=== PATIENT | male | born 1985 | race African-American/Black ===

== ENCOUNTER 2019-07-17 08:58 | Emergency (ER) | payer SELFPAY ==
[2019-07-17] MEDS ORDERED: FAMOTIDINE 20 MG/2 ML VIAL IV ONE (09:40)
[2019-07-17] MEDS ORDERED: ONDANSETRON 4 MG/2 ML VIAL ONE (09:42)
[2019-07-17 10:01] LABS: Absolute Lymphocytes (CBC) 3.3 K/uL (0.7-4.9); Basophils % 0.2 % (0-1.3); Lymphocytes % 37.9 % (15.3-44.8); MPV 6.7 fL (7.6-11.3); RBC Red Blood Cell Count 3.09 M/uL (4.33-5.43)
[2019-07-17 10:13] LABS: ALT/SGPT 18 U/L (12-78); AST/SGOT 15 U/L (15-37); Albumin 3.5 g/dL (3.4-5.0); Alkaline Phosphatase 48 U/L (45-117); BUN Blood Urea Nitrogen 22 mg/dL (7-18); Bicarbonate 28 mmol/L (21-32); Bilirubin Direct < 0.1 mg/dL (0-0.2); Bilirubin Total 0.2 mg/dL (0.2-1.0); Glucose Level 97 mg/dL (74-106); Lipase 93 U/L (73-393); Potassium 3.9 mmol/L (3.5-5.1); Protein, Total 6.4 g/dL (6.4-8.2); Sodium Level 142 mmol/L (136-145)
--- NOTE | 2019-07-17 10:37 | RAD REPORT ---
EXAM DESCRIPTION: US - Abdomen Exam Limited - 07/17/2019 10:23 am CLINICAL HISTORY: Abdominal pain. COMPARISON: None. FINDINGS: The gallbladder wall is not thickened. A gallstone is not seen. The biliary tree is upper limits normal caliber IMPRESSION: Unremarkable gallbladder ultrasound.
--- NOTE | 2019-07-17 10:48 | ER ---
Nurse's Notes [facility] Name: Harpreet Andrews Age: 34 yrs Sex: Male : 1985 Arrival Date: 07/17/2019 Time: 09:01 Bed 2 Private MD: Diagnosis: Hematemesis Presentation: 07/17 09:16 Presenting complaint: Patient states: RUQ and back pain that began 2 weeks ago, is ss worse in the morning. Pt reports that yesterday he had two episodes of vomiting with blood in it. Today he feels better, but he is just worried and wants to be checked out. Transition of care: patient was not received from another setting of care. Onset of symptoms is unknown. Risk Assessment: Do you want to hurt yourself or someone else? Patient reports no desire to harm self or others. Initial Sepsis Screen: Does the patient meet any 2 criteria? No. Patient's initial sepsis screen is negative. Does the patient have a suspected source of infection? No. Patient's initial sepsis screen is negative. Care prior to arrival: None. 09:16 Acuity: RAMA 3 ss 09:16 Method Of Arrival: Ambulatory ss Triage Assessment: 09:20 General: Appears in no apparent distress. comfortable, Behavior is cooperative, bp appropriate for age, anxious. Pain: Complains of pain in right upper quadrant. EENT: No deficits noted. Neuro: No deficits noted. Cardiovascular: No deficits noted. Respiratory: No deficits noted. GI: Reports nausea, vomiting. : No signs and/or symptoms were reported regarding the genitourinary system. Derm: No deficits noted. Musculoskeletal: No deficits noted. Historical: - Allergies: 09:18 No Known Allergies; ss - Home Meds: 09:18 None [Active]; ss - PMHx: 09:18 None; ss - PSHx: 09:18 None; ss - Immunization history:: Adult Immunizations up to date. - Social history:: Smoking status: Patient uses tobacco products, black n milds. - Ebola Screening: : Patient denies exposure to infectious person Patient denies travel to an Ebola-affected area in the 21 days before illness onset. - Family history:: not pertinent. - Hospitalizations: : No recent hospitalization is reported. Screenin:46 Abuse screen: Denies threats or abuse. Denies injuries from another. Nutritional bp screening: No deficits noted. Tuberculosis screening: No symptoms or risk factors identified. Fall Risk None identified. Assessment: 09:20 General: SEE TRIAGE NOTE. bp 10:04 Reassessment: ALL CURRENT ORDERS COMPLETED, U/S PENDING. bp 10:56 Reassessment: PT D/C HOME AMBULATORY WITH FAMILY, DX WITH GI BLEED. bp Vital Signs: 09:18 BP 121 / 94; Pulse 87; Resp 16; Temp 98.0(O); Pulse Ox 100% on R/A; Weight 81.65 kg; ss Height 6 ft. 0 in. (182.88 cm); Pain 0/10; 10:05 BP 116 / 84; Pulse 76; Resp 16; Pulse Ox 100% ; bp 10:56 BP 107 / 79; Pulse 81; Resp 16; Temp 98; Pulse Ox 100% ; bp 09:18 Body Mass Index 24.41 (81.65 kg, 182.88 cm) ED Course: 09:01 Patient arrived in ED. as 09:17 Triage completed. ss 09:18 Arm band placed on left wrist. ss 09:19 Gabriel Ellington, KOSTA is Primary Nurse. bp 09:22 Jim Sandoval MD is Attending Physician. rn 09:40 Inserted saline lock: 20 gauge in right antecubital area, using aseptic technique. bp Blood collected. 09:46 Patient has correct armband on for positive identification. Bed in low position. Call bp light in reach. Side rails up X2. Adult w/ patient. 10:23 US Abdomen Limited In Process Unspecified. EDMS 10:48 Robin Lua MD is Referral Physician. rn 10:56 No provider procedures requiring assistance completed. IV discontinued, intact, bp bleeding controlled, No redness/swelling at site. Pressure dressing applied. Administered Medications: 09:40 Drug: Zofran 4 mg Route: IVP; Site: right antecubital; sg 10:05 Follow up: Response: Nausea is decreased bp 09:40 Drug: Pepcid 20 mg Route: IVP; Site: right antecubital; sg 10:05 Follow up: Response: Nausea is decreased bp Outcome: 10:48 Discharge ordered by . rn 10:57 Discharged to home ambulatory, with family. bp 10:57 Condition: stable 10:57 Discharge instructions given to patient, Instructed on discharge instructions, follow up and referral plans. medication usage, Demonstrated understanding of instructions, follow-up care, medications, Prescriptions given X 1. 10:57 Patient left the ED. bp Signatures: Dispatcher [employer] EDMS Wayne Modi, RN RN Janet Troncoso Roman, MD MD rn Smirch, Shelby, RN RN ss Peltier, Brian, RN RN bp
--- NOTE | 2019-07-17 10:48 | EDPHYS ---
Physician Documentation [facility] Name: Harpreet Andrews Age: 34 yrs Sex: Male : 1985 Arrival Date: 07/17/2019 Time: 09:01 Bed 2 Private MD: ED Physician Jim Sandoval HPI: 07/17 09:33 This 34 yrs old Black Male presents to ER via Ambulatory with complaints of Abdominal rn Pain, Vomiting. 09:33 The patient presents to the emergency department with nausea, vomiting, abdominal pain, rn of the epigastric area and right upper quadrant, described as crampy, intermittent, and does not radiate. Onset: The symptoms/episode began/occurred. 09:34 Onset: The symptoms/episode began/occurred 2 week(s) ago. Possible causes: unknown. The rn symptoms are aggravated by nothing. The symptoms are alleviated by nothing. Severity of symptoms: At their worst the symptoms were mild in the emergency department the symptoms have improved. The patient has not experienced similar symptoms in the past. Reports upper abd pain, nausea/vomiting, had 1 episode of hematemesis following episodes of retching. No fever. Reports having acid problems lately, no known gallbladder problems. Now pain free and no vomiting or nausea since yesterday, is from out of town and wanted to get checked. . Historical: - Allergies: 09:18 No Known Allergies; ss - Home Meds: 09:18 None [Active]; ss - PMHx: 09:18 None; ss - PSHx: 09:18 None; ss - Immunization history:: Adult Immunizations up to date. - Social history:: Smoking status: Patient uses tobacco products, black n milds. - Ebola Screening: : Patient denies exposure to infectious person Patient denies travel to an Ebola-affected area in the 21 days before illness onset. - Family history:: not pertinent. - Hospitalizations: : No recent hospitalization is reported. ROS: 09:34 Constitutional: Negative for fever, chills, and weight loss, Eyes: Negative for injury, rn pain, redness, and discharge, Cardiovascular: Negative for chest pain, palpitations, and edema, Respiratory: Negative for shortness of breath, cough, wheezing, and pleuritic chest pain, Abdomen/GI: + 2 weeks of abd pain/nausea/vomiting. MS/Extremity: Negative for injury and deformity, Skin: Negative for injury, rash, and discoloration, Neuro: Negative for headache, weakness, numbness, tingling, and seizure. Exam: 09:34 Constitutional: This is a well developed, well nourished patient who is awake, alert, rn and in no acute distress. Ambulatory to room without difficulty or assistance. Head/Face: Normocephalic, atraumatic. Cardiovascular: Regular rate and rhythm with a normal S1 and S2. No gallops, murmurs, or rubs. Normal PMI, no JVD. No pulse deficits. Respiratory: Lungs have equal breath sounds bilaterally, clear to auscultation and percussion. No rales, rhonchi or wheezes noted. No increased work of breathing, no retractions or nasal flaring. Abdomen/GI: soft, non-tender Skin: Warm, dry with normal turgor. Normal color with no rashes, no lesions, and no evidence of cellulitis. MS/ Extremity: Pulses equal, no cyanosis. Neurovascular intact. Full, normal range of motion. Equal circumference. Neuro: Awake and alert, GCS 15, oriented to person, place, time, and situation. Vital Signs: 09:18 BP 121 / 94; Pulse 87; Resp 16; Temp 98.0(O); Pulse Ox 100% on R/A; Weight 81.65 kg; ss Height 6 ft. 0 in. (182.88 cm); Pain 0/10; 10:05 BP 116 / 84; Pulse 76; Resp 16; Pulse Ox 100% ; bp 10:56 BP 107 / 79; Pulse 81; Resp 16; Temp 98; Pulse Ox 100% ; bp 09:18 Body Mass Index 24.41 (81.65 kg, 182.88 cm) MDM: 09:22 Patient medically screened. rn 10:46 Differential diagnosis: gastritis, cholecystitis, pancreatitis, viral gastroenteritis, rn gastroenteritis. Data reviewed: vital signs, nurses notes, lab test result(s), radiologic studies, ultrasound, and as a result, I will discharge patient. Counseling: I had a detailed discussion with the patient and/or guardian regarding: the historical points, exam findings, and any diagnostic results supporting the discharge/admit diagnosis, lab results, radiology results, the need for outpatient follow up, to return to the emergency department if symptoms worsen or persist or if there are any questions or concerns that arise at home. Response to treatment: the patient's symptoms have markedly improved after treatment, the patient is now symptom free, and as a result, I will discharge patient. Special discussion: Based on the patient's Hx, exam, and Dx evaluation, there is no indication for emergent surgery or inpatient Tx. It is understood by the patient/guardian that if the Sx's persist or worsen they need to return immediately for re-evaluation. I discussed with the patient/guardian in detail that at this point there is no indication for admission to the hospital. It is understood, however, that if the symptoms persist or worsen the patient needs to return immediately for re-evaluation. Based on the history and exam findings, there is no indication for further emergent testing or inpatient evaluation. I discussed with the patient/guardian the need to see the special procedures nurse for further evaluation of the symptoms. ED course: Pt still asymptomatic, hemoglobin 9.7, possible rachel-johnson vs gastritis (recent high ETOH consumption), vs ulcers. Will start antacid medication and given return precautions. Told needs outpt EGD. . 07/17 09:30 Order name: Basic Metabolic Panel; Complete Time: 10:17 rn 07/17 09:30 Order name: CBC with Diff; Complete Time: 10:17 rn 07/17 09:30 Order name: Hepatic Function; Complete Time: 10:17 rn 07/17 09:30 Order name: Lipase; Complete Time: 10:17 rn 07/17 09:30 Order name: US Abdomen Limited; Complete Time: 10:46 rn 07/17 09:30 Order name: IV Saline Lock; Complete Time: :44 rn 07/17 09:30 Order name: Labs collected and sent; Complete Time: 09:44 rn Administered Medications: 09:40 Drug: Zofran 4 mg Route: IVP; Site: right antecubital; sg 10:05 Follow up: Response: Nausea is decreased bp 09:40 Drug: Pepcid 20 mg Route: IVP; Site: right antecubital; sg 10:05 Follow up: Response: Nausea is decreased bp Disposition: 07/17/19 10:48 Discharged to Home. Impression: Hematemesis. - Condition is Stable. - Discharge Instructions: Gastrointestinal Bleeding, Hematemesis. - Prescriptions for Protonix 40 mg Oral Tablet - take 1 tablet by ORAL route once daily; 30 tablet. - Medication Reconciliation Form, Thank You Letter, Antibiotic Education, Prescription Opioid Use form. - Follow up: Robin Lua MD; When: As needed; Reason: Further diagnostic work-up, Recheck today's complaints, Re-evaluation by your physician. - Problem is new. - Symptoms have improved. Signatures: Dispatcher [employer] EDWayne Vargas RN RN Jim Piedra MD MD rn Smirch, Shelby, RN RN ss Peltier, Brian, RN RN bp Corrections: (The following items were deleted from the chart) 10:57 10:48 07/17/2019 10:48 Discharged to Home. Impression: Hematemesis. Condition is bp Stable. Forms are Medication Reconciliation Form, Thank You Letter, Antibiotic Education, Prescription Opioid Use. Follow up: Robin Lua; When: As needed; Reason: Further diagnostic work-up, Recheck today's complaints, Re-evaluation by your physician. Problem is new. Symptoms have improved. rn
[2019-07-17 13:59] VITALS: O2SAT 100
[2019-07-17 14:01] VITALS: BP 107/79; TEMP 98
== END 2019-07-17 10:57 | disposition home or self-care (01) ==
LOC: ER 08:58
DX: K92.0 Hematemesis (principal); Z72.0 Tobacco use
CPT/HCPCS: 36415; 76705; 80048; 80076; 83690; 85025; 96374; 96375; 99284; J2405

== ENCOUNTER 2021-10-10 18:50 | Emergency (ER) | payer BC, SELFPAY ==
--- OUTSIDE RECORDS SUMMARY | 2021-10-10 18:52 | XMS REPORT | Continuity of Care Document ---
:1985 Author Organization [facility] t Address [address] [place] [address] Care Team Providers Name Role Phone PCP, DOES NOT HAVE A Primary Care Physician Unavailable AMPARO HASTINGS Attending Clinician Unavailable Amparo Bullock Attending Clinician DALY Attending Clinician Unavailable Doctor Unassigned, Name Attending Clinician Unavailable Jef LEIJA Attending Clinician Unknown Attending Clinician Unavailable JEF Attending Clinician Unavailable Payers Payer Name Policy Type Policy Number Effective Date Expiration Date S [facility] [id number] 2019 00:00:00 Problems Condition Condition Condition Status Onset Resolution Last Treating Co mments Source Name Details Category Date Date Treatment Clinician Date No known No known Disease Unive rs active active ity of problems problems [facility] Allergies, Adverse Reactions, Alerts Allergy Allergy Status Severity Reaction(s) Onset Inactive Treating Comm ents Source Name Type Date Date Clinician NO KNOWN Drug Active Univers ALLERGIE Class ity of S [facility] Social History Social Habit Start Date Stop Date Quantity Comments Source Exposure to Not sure [facility] SARS-CoV-2 (event) Medica l Branch Tobacco use and 2017-12-10 2017-12-10 Never used [facility] exposure 00:00:00 00:00:00 [facility] Sex Ass[birth year] [facility] 00:00:00 00:00:00 [facility] Smoking Status Start Date Stop Date Source Current some day smoker 2017-12-10 00:00:00 Univ [facility] Medications Ordered Filled Start Stop Current Ordering Indication Dosage Frequency Signature Comments Components Source Medication Medication Date Date Medication? Clinician (SIG) Name Name ondansetron 2021- No 4mg 4 mg, Slow Univers (ZOFRAN 09-25 IV Push, ity of (PF)) 21:45: 21:00 ONCE, 1 [place] injection 4 00 :00 dose, On Medi sahra mg Fri09/25/21 Branch at 1545, ZAC NaCl 0.9% 2021- No 1000mL at 999 Uni vers (NS) bolus 09-25 mL/hr, ity of infusion 21:45: 22:04 1,000 mL, Adama as 1,000 mL 00 :00 IV Medical Infusion, Branch ONCE, 1 dose, On Fri09/25/21 at 1545, STAT amoxicillin 2020-08- Yes [id number] 1{tbl} Take 1 Univers -clavulanat 08-26 tablet by it y of e 00:00: 05:59 mouth 2 [place] (AUGMENTIN) 00 :00 (two) Medical 875-125 mg times Branch per tablet daily for 10 days. traMADoL 50 2020-08- Yes [id number] 50mg Take 1 Uni vers mg tablet 08-19 tablet by ity of 00:00: 05:59 mouth [place] 00 :00 every 8 Medical (eight) Branch hours as needed for Pain (scale 4-6) for up to 3 days. Indication s: acute pain loratadine- 2018-08 Yes [id number] 1{tbl} Take 1 Univers pseudoephed 0-18 tablet by ity of rine 00:00: mouth [place] (CLARITIN-D 00 daily. Medica l 24 HOUR) Branch 10-240 mg per 24 hr tablet azithromyci 2018-08 Yes [id number] 250mg Take 1 Univers n 0-18 tablet by ity of (ZITHROMAX 00:00: mouth [place] Z-MARISELA) 250 00 SEE-INSTRU Med ical mg tablet CTIONS. Branch Take 500 mg day 1, then 250 mg days 2 to 5. benzonatate 2018-08 Yes [id number] 100mg Take 1 Univers 100 mg 0-18 capsule by ity of capsule 00:00: mouth 3 [place] 00 (three) Medical times Branch daily as needed for Cough. loratadine- 2018-08 Yes [id number] 1{tbl} Take 1 Univers pseudoephed 0-18 tablet by ity of rine 00:00: mouth [place] (CLARITIN-D 00 daily. Medica l 24 HOUR) Branch 10-240 mg per 24 hr tablet azithromyci 2018-08 Yes [id number] 250mg Take 1 Univers n 0-18 tablet by ity of (ZITHROMAX 00:00: mouth [place] Z-MARISELA) 250 00 SEE-INSTRU Med ical mg tablet CTIONS. Branch Take 500 mg day 1, then 250 mg days 2 to 5. benzonatate 2018-08 Yes [id number] 100mg Take 1 Univers 100 mg 0-18 capsule by ity of capsule 00:00: mouth 3 [place] 00 (three) Medical times Branch daily as needed for Cough. loratadine- 2018-08 Yes [id number] 1{tbl} Take 1 Univers pseudoephed 0-18 tablet by ity of rine 00:00: mouth [place] (CLARITIN-D 00 daily. Medica l 24 HOUR) Branch 10-240 mg per 24 hr tablet azithromyci 2018-08 Yes [id number] 250mg Take 1 Univers n 0-18 tablet by ity of (ZITHROMAX 00:00: mouth [place] Z-MARISELA) 250 00 SEE-INSTRU Med ical mg tablet CTIONS. Branch Take 500 mg day 1, then 250 mg days 2 to 5. benzonatate 2018-08 Yes [id number] 100mg Take 1 Univers 100 mg 0-18 capsule by ity of capsule 00:00: mouth 3 [place] 00 (three) Medical times Branch daily as needed for Cough. ondansetron Yes [id number] 4mg Take 1 Univers 4 mg 7-09 tablet by ity of disintegrat 00:00: mouth [place] ing tablet 00 every 8 Medica l (eight) Branch hours as needed for Nausea and Vomiting (N/V). ondansetron Yes [id number] 4mg Take 1 Univers 4 mg 7-09 tablet by ity of disintegrat 00:00: mouth [place] ing tablet 00 every 8 Medica l (eight) Branch hours as needed for Nausea and Vomiting (N/V). ondansetron Yes [id number] 4mg Take 1 Univers 4 mg 7-09 tablet by ity of disintegrat 00:00: mouth [place] ing tablet 00 every 8 Medica l (eight) Branch hours as needed for Nausea and Vomiting (N/V). traMADOL 50 2018-0 Yes 50mg Take 1 Univ ers mg tablet 3-23 tablet by ity o f 00:00: mouth [place] 00 every 6 Medical (six) Branch hours as needed for Pain (scale 4-6). naproxen 2018-0 Yes 500mg Take 1 Univer s (NAPROSYN) 3-23 tablet by ity of 500 mg 00:00: mouth 2 [place] tablet 00 (two) Medical times Branch daily with meals. traMADOL 50 2018-0 Yes 50mg Take 1 Univ ers mg tablet 3-23 tablet by ity o f 00:00: mouth [place] 00 every 6 Medical (six) Branch hours as needed for Pain (scale 4-6). naproxen 2018-0 Yes 500mg Take 1 Univer s (NAPROSYN) 3-23 tablet by ity of 500 mg 00:00: mouth 2 [place] tablet 00 (two) Medical times Branch daily with meals. traMADOL 50 2018-0 Yes 50mg Take 1 Univ ers mg tablet 3-23 tablet by ity o f 00:00: mouth [place] 00 every 6 Medical (six) Branch hours as needed for Pain (scale 4-6). naproxen 2018-0 Yes 500mg Take 1 Univer s (NAPROSYN) 3-23 tablet by ity of 500 mg 00:00: mouth 2 [place] tablet 00 (two) Medical times Branch daily with meals. Vital Signs Vital Name Observation Time Observation Value Comments Source Systolic blood 2021-09-25 20:37:00 129 [facility]Hg[facility] Diastolic blood 2021-09-25 20:37:00 79 mm[facility]Hg[facility] Heart rate 2021-09-25 20:37:00 74 /min [facility] Body temperature 2021-09-25 20:37:00 37.06 Lissett [facility] Respiratory rate 2021-09-25 20:37:00 20 /min [facility] Body height 2021-09-25 20:37:00 182.9 cm [facility] Body weight 2021-09-25 20:37:00 99.791 kg [facility] Branch BMI 2021-09-25 20:37:00 29.84 kg/m2 Universi [facility] [place] Oxygen saturation in 2021-09-25 20:37:00 98 /min University of Arterial blood by [facility] Pulse oximetry Branch Systolic blood 2021-08-15 16:14:00 105 mm[Hg] Univer [facility]ity of [facility] Diastolic blood 2021-08-15 16:14:00 72 mm[Hg] [facility] rate 2021-08-15 16:14:00 75 /min Universi [facility] [place] Body temperature 2021-08-15 16:14:00 36.39 [facility] Respiratory rate 2021-08-15 16:14:00 18 /min [facility] Body height 2021-08-15 16:14:00 182.9 cm Universi [facility] [place] Body weight 2021-08-15 16:14:00 94.62 kg Universi [facility] [place] BMI 2021-08-15 16:14:00 28.29 kg/m2 Universi [facility] [place] Oxygen saturation in 2021-08-15 16:14:00 99 /min University of Arterial blood by [facility] Pulse oximetry Branch Procedures Procedure Date / Time Performed Performing Clinician Sourc e LIPASE 2021-09-25 20:59:00 Pepe Hastings [facility] o [facility] [place] MAGNESIUM 2021-09-25 20:59:00 Pepe Hastings [facility] o [facility] [place] COMP. METABOLIC PANEL 2021-09-25 20:59:00 Pepe Hastings [facility] ([id number]) Medical [place] CBC WITH DIFF 2021-09-25 20:59:00 Alexsander, K [facility] o [facility] [place] NOTICE OF PRIVACY 2021-09-25 20:32:35 Doctor Unassigned, No [facility] PRACTICES [facility] Medical Branch CONSENT/REFUSAL FOR 2021-09-25 20:32:19 Doctor Unassigned, No [facility] DIAGNOSIS AND [facility] Medical Branch TREATMENT ASSIGNMENT OF BENEFITS 2021-09-25 20:10:53 Doctor Unassigned, No [facility] Encounters Start End Encounter Admission Attending Care Care Encounter Source Date/Time Date/Time Type Type Clinicians Facility Department ID 2021-09-25 2021-09-25 Emergency X Pepe HASTINGS [facility] ERT [id number] Univers 14:40:00 16:08:00 ity of [facility] 2021-09-25 2021-09-25 Emergency Pepe Hastings [facility] [id number] Univers 14:40:00 16:08:00 Amparo BAH [id number] i ty [facility] 4.2.7.2.686 [place] [facility] [phone] [facility] 084 Branch 2021-09-25 2021-09-25 Outpatient R [facility] [id number] Univers 14:20:00 14:20:00 [id number] ity of [facility] 2021-09-25 2021-09-25 [facility] [id number] Univers 14:20:00 14:20:00 MUKESH adams o f [facility] 2021-09-25 2021-09-25 Orders Doctor SAFIA [id number] Univers 00:00:00 00:00:00 Only Unassigned, SONG [id number] ity of [place] [facility] [id number] Adama as [id number] [facility] 009 [place] 2021-08-15 2021-08-15 Urgent [facility] 1.2.840. [id number] Univers 10:40:00 10:40:00 Care Unknown, Attending HEALTH [id number] ity [facility] 4.2.7.2.686 Adama as ANA CRISTINA?BLEA [phone] Id dical [address] MEDICAL OFFICE BUILDING 2021-08-15 2021-08-15 Outpatient [facility] [id number] Univers 10:40:00 10:27:12 [facility] ity [facility] Results Test Description Test Time Test Comments Results Result Comments Source MAGNESIUM 2021-09-25 22:00:12 Test Item Value Reference Range Interpretation Comme nts MAGNESIUM (test code = 0285270735) 1.8 mg/dL 1.7-2.4 Lab Interpretation (test code = 55957-3) [facility][id number][facility]2021-09-25 21:59:57 Test Item Value Reference Range Interpretation Comments NA (test code = 139 mmol/L 135-145 5687604331) K (test code = 4.1 mmol/L 3.5-5.0 8288094728) CL (test code = 106 mmol/L 98-108 8796145863) CO2 TOTAL (test code = 26 mmol/L 23-31 1243301577) AGAP (test code = 2-16 1966503069) BUN (test code = 14 mg/dL 7-23 9309643366) GLUCOSE (test code = 81 mg/dL 70-110 7759731760) CREATININE (test code = 0.87 mg/dL 0.60-1.25 3487148533) TOTAL BILI (test code = 0.4 mg/dL 0.1-1.7 0574626477) CALCIUM (test code = 9.2 mg/dL 8.6-10.6 0860500782) T PROTEIN (test code = 7.8 g/dL 6.3-8.2 3606878970) ALBUMIN (test code = 5.0 g/dL 3.5-5.0 7842146989) ALK PHOS (test code = 92 U/L 34-122 1048865683) ALTv (test code = 92 U/L 5-50 H 1742-6) AST(SGOT) (test code = 63 U/L 13-40 H 5357860793) eGFR (test code = mL/min/1.73m2 1546499146) RYANN (test code = RYANN) Association of Glomerular Filtration Rate (GFR) and Staging of Kidney Disease* + --+ --+ ------+| GFR (mL/min/1.73 m2) ?| With Kidney Damage ?| ?Without Kidney Damage+ --------+ --------+ +| ?>90 ?| ?Stage one ?| ? Normal ?+ ---+ ---+ -------+| ?60-89 ?| ?Stage two ?| ? Decreased GFR ? + --+ --+ ------+| ?30-59 ?| ?Stage three ?| ? Stage three ? + --+ --+ ------+| ?15-29 ?| ?Stage four ? | ? Stage four ?+ ---+ ---+ -------+| ?<15 (or dialysis) ? ?| ?Stage five ? | ? Stage five ?+ ---+ ---+ -------+ *Each stage assumes the associated GFR level has been in effect for at least three months. ?Stages 1 to 5, with or without kidney disease, indicate chronic kidney disease. Notes: Determination of stages one and two (with eGFR >59mL/min/1.73 m2) requires estimation of kidney damage for at least three months as defined by structural or functional abnormalities of the kidney, manifested by either:Pathological abnormalities or Markers of kidney damage (including abnormalities in the composition of the blood or urine or abnormalities in imaging tests). Lab Interpretation Abnormal (test code = 77710-0) [facility] 21:59:52 Test Item Value Reference Range Interpretation Comments LIPASE (test code = 5844420610) 88 U/L 0-220 Lab Interpretation (test code = Normal 43709-7) [facility] WITH [id number] 21:49:11 Test Item Value Reference Range Interpretation Comments WBC (test code = See_Comment [Automated 6037-2) message] The sy stem which generated this result transmitted reference range : 4.20 - 10.70 10*3/?L. The reference range was not used to interpret this result as normal/abnormal . RBC (test code = See_Comment [Automated 332-8) message] The sy stem which generated this result transmitted reference range : 4.26 - 5.52 10*6/?L. The reference range was not used to interpret this result as normal/abnormal . HGB (test code = 12.7 g/dL 12.2-16.4 718-7) HCT (test code = 38.7 % 38.4-49.3 4544-3) MCV (test code = 90.2 fL 81.7-95.6 787-2) MCH (test code = 29.6 pg 26.1-32.7 785-6) MCHC (test code = 32.8 g/dL 31.2-35.0 786-4) RDW-SD (test code = 43.8 fL 38.5-51.6 40756-3) RDW-CV (test code = 13.3 % 12.1-15.4 788-0) PLT (test code = See_Comment [Automated 777-3) message] The sy stem which generated this result transmitted reference range : 150 - 328 10*3/ ?L. The reference r mike was not used to interpret this result as normal/abnormal . MPV (test code = 8.4 fL 9.8-13.0 L 14192-2) NRBC/100 WBC (test See_Comment [Automat ed code = 4605074424) message] The system which generated this result transmitted reference range : 0.0 - 10.0 /100 WBCs. The refer ence range was not u sed to interpret th is result as normal/abnormal . NRBC x10^3 (test code <0.01 See_Comment [Auto mated = 3300328439) message] The s ystem which generated this result transmitted reference range : 10*3/?L. The reference range was not used to interpret this result as normal/abnormal . GRAN MAT (NEUT) % 53.5 % (test code = 770-8) IMM GRAN % (test code 0.30 % = 0439664549) LYMPH % (test code = 37.0 % 736-9) MONO % (test code = 6.6 % 5905-5) EOS % (test code = 2.5 % 713-8) BASO % (test code = 0.1 % 706-2) GRAN MAT x10^3(ANC) 3.57 10*3/uL 1.99-6.95 (test code = 6388228410) IMM GRAN x10^3 (test <0.03 0.00-0.06 code = 1105614225) LYMPH x10^3 (test code 2.47 10*3/uL 1.09-3.23 = 731-0) MONO x10^3 (test code 0.44 10*3/uL 0.36-1.02 = 742-7) EOS x10^3 (test code = 0.17 10*3/uL 0.06-0.53 711-2) BASO x10^3 (test code <0.03 0.01-0.09 = 704-7) Lab Interpretation Abnormal (test code = 68856-6) [facility]"
--- NOTE | 2021-10-10 20:14 | EDPHYS ---
Physician Documentation [facility] Name: Harpreet Andrews Age: 36 yrs Sex: Male : 1985 Arrival Date: 10/10/2021 Time: 18:54 Bed 23 Private MD: ED Physician Jim Sandoval HPI: 10/10 19:51 This 36 yrs old Black Male presents to ER via Unassigned with complaints of Abdominal cp Pain. 19:51 The patient presents with abdominal pain. Associated signs and symptoms: Pertinent cp positives: nausea, vomiting, and diarrhea. 19:51 Onset: The symptoms/episode began/occurred yesterday. cp Historical: - Allergies: 21:28 No Known Allergies; lr4 - Home Meds: 21:28 None [Active]; lr4 - PMHx: 21:28 None; lr4 - Immunization history:: Adult Immunizations up to date. - Social history:: Smoking status: Patient reports the use of cigarette tobacco products, smokes one-half pack cigarettes per day. ROS: 19:55 Constitutional: Negative for body aches, chills, fever, poor PO intake. cp 19:55 Eyes: Negative for injury, pain, redness, and discharge. cp 19:55 ENT: Negative for drainage from ear(s), ear pain, sore throat, difficulty swallowing, difficulty handling secretions. 19:55 Cardiovascular: Negative for chest pain. 19:55 Respiratory: Negative for cough, shortness of breath, wheezing. 19:55 Abdomen/GI: Positive for abdominal pain, nausea, vomiting, and diarrhea, Negative for constipation. 19:55 : Negative for urinary symptoms. 19:55 Neuro: Negative for altered mental status, headache, weakness. 19:55 All other systems are negative. Exam: 20:00 Constitutional: The patient appears in no acute distress, alert, awake, comfortable, cp non-toxic, well developed, well nourished. 20:00 Head/Face: Normocephalic, atraumatic. cp 20:00 Respiratory: the patient does not display signs of respiratory distress, Respirations: cp normal, Breath sounds: are clear throughout, no decreased breath sounds, no stridor, no wheezing. 20:00 Abdomen/GI: Inspection: abdomen appears normal, Bowel sounds: active, all quadrants, cp Palpation: abdomen is soft and non-tender, in all quadrants. Vital Signs: 20:00 BP 118 / 89; Pulse 76; Resp 18; Temp 97.6; Pulse Ox 99% ; Weight 81.65 kg; Height 6 ft. lr4 0 in. (182.88 cm); 21:00 BP 118 / 89; Pulse 79; Resp 20; Temp 97.6; Pulse Ox 99% ; lr4 20:00 Body Mass Index 24.41 (81.65 kg, 182.88 cm) lr4 MDM: 19:42 Patient medically screened. cp 20:12 Data reviewed: nurses notes. cp Administered Medications: 20:20 Drug: Zofran (Ondansetron) 4 mg Route: PO; lr4 20:30 Follow up: Response: No adverse reaction lr4 20:21 Drug: Bentyl (dicyclomine) 20 mg Route: PO; lr4 20:30 Follow up: Response: No adverse reaction lr4 Disposition: 23:16 Co-signature as Attending Physician, Jim Sandoval MD I agree with the assessment and rn plan of care. Attestation: The patient's history, exam findings, diagnostics, and a summary of any interventions or procedures was reviewed in detail with Vikram CISSE. Disposition Summary: 10/10/21 20:13 Discharge Ordered Location: Home cp Problem: new cp Symptoms: have improved cp Condition: Stable cp Diagnosis - Nausea with vomiting, unspecified cp - Diarrhea, unspecified cp Followup: cp - With: Private Physician - When: 2 - 3 days - Reason: Worsening of condition Discharge Instructions: - Discharge Summary Sheet cp - Food Choices to Help Relieve Diarrhea, Adult cp - Diarrhea, Adult cp - Nausea and Vomiting, Adult cp - Form - Excuse from Work, School, or Physical Activity cp Forms: - Medication Reconciliation Form cp - Thank You Letter cp - Antibiotic Education cp - Prescription Opioid Use cp Prescriptions: - Zofran 4 mg Oral Tablet - take 1 tablet by ORAL route every 12 hours As needed; 20 tablet; Refills: 0, cp Product Selection Permitted - dicyclomine 20 mg Oral Tablet - take 1 tablet by ORAL route 4 times per day; 20 tablet; Refills: 0, Product cp Selection Permitted Signatures: Jim Sandoval MD MD rn Page, Corey, PA PA cp Rogers, Lashaunda RN RN lr4
[2021-10-10] MEDS ORDERED: DICYCLOMINE HCL 10 MG CAP ONE (20:15)
[2021-10-10] MEDS ORDERED: ONDANSETRON 4 MG (ODT) TAB ONE (20:15)
--- NOTE | 2021-10-10 20:51 | ER ---
Nurse's Notes [facility] Name: Harpreet Andrews Age: 36 yrs Sex: Male : 1985 Arrival Date: 10/10/2021 Time: 18:54 Bed 23 Private MD: Diagnosis: Nausea with vomiting, unspecified;Diarrhea, unspecified Presentation: 10/10 20:00 Chief complaint: Patient states: Abdominal pain with n/v/d x 1 day. lr4 20:00 Coronavirus screen: Vaccine status: Patient reports receiving the 2nd dose of the covid lr4 vaccine. Date October 2021. Ebola Screen: Patient negative for fever greater than or equal to 101.5 degrees Fahrenheit, and additional compatible Ebola Virus Disease symptoms. Initial Sepsis Screen: Does the patient meet any 2 criteria? No. Patient's initial sepsis screen is negative. Does the patient have a suspected source of infection? No. Patient's initial sepsis screen is negative. Risk Assessment: Do you want to hurt yourself or someone else? Patient reports no desire to harm self or others. Onset of symptoms was October 10, 2021. 20:00 Method Of Arrival: Ambulatory lr4 20:00 Acuity: RAMA 3 lr4 20:00 Onset of symptoms was October 10, 2021. lr4 20:00 Onset of symptoms was October 10, 2021 at 08:00. lr4 20:30 Onset of symptoms was October 10, 2021. lr4 Triage Assessment: 20:45 General: Appears in no apparent distress. comfortable, Behavior is calm, cooperative. lr4 Pain: Complains of pain in abdomen. GI: Reports lower abdominal pain, upper abdominal pain, bloating, cramping, diarrhea, nausea, vomiting. Historical: - Allergies: 21:28 No Known Allergies; lr4 - Home Meds: 21:28 None [Active]; lr4 - PMHx: 21:28 None; lr4 - Immunization history:: Adult Immunizations up to date. - Social history:: Smoking status: Patient reports the use of cigarette tobacco products, smokes one-half pack cigarettes per day. Screenin:00 Abuse screen: Denies threats or abuse. lr4 20:00 Nutritional screening: No deficits noted. Tuberculosis screening: No symptoms or risk lr4 factors identified. Fall Risk None identified. Assessment: 20:15 GI: Bowel sounds present X 4 quads. Abd is soft and non tender Abd is non tender. lr4 21:45 General: Appears in no apparent distress. comfortable, Behavior is calm, cooperative. lr4 Neuro: No deficits noted. Cardiovascular: No deficits noted. Respiratory: No deficits noted. Vital Signs: 20:00 BP 118 / 89; Pulse 76; Resp 18; Temp 97.6; Pulse Ox 99% ; Weight 81.65 kg; Height 6 ft. lr4 0 in. (182.88 cm); 21:00 BP 118 / 89; Pulse 79; Resp 20; Temp 97.6; Pulse Ox 99% ; lr4 20:00 Body Mass Index 24.41 (81.65 kg, 182.88 cm) lr4 ED Course: 18:54 Patient arrived in ED. as 19:38 Vikram Feldman PA is PHCP. cp 19:38 Jim Sandoval MD is Attending Physician. cp 20:10 Darline Fragoso RN is Primary Nurse. lr4 20:15 No provider procedures requiring assistance completed. lr4 21:28 Triage completed. lr4 22:15 Arm band placed on. lr4 22:17 Patient has correct armband on for positive identification. Bed in low position. Side lr4 rails up X 1. 22:19 Patient did not have IV access during this emergency room visit. lr4 Administered Medications: 20:20 Drug: Zofran (Ondansetron) 4 mg Route: PO; lr4 20:30 Follow up: Response: No adverse reaction lr4 20:21 Drug: Bentyl (dicyclomine) 20 mg Route: PO; lr4 20:30 Follow up: Response: No adverse reaction lr4 Outcome: 20:13 Discharge ordered by . cp 20:15 Condition: stable lr4 20:30 Discharged to home ambulatory. lr4 20:30 Discharge instructions given to patient. lr4 20:50 Patient left the ED. mw2 Signatures: Janet Saucedo as Vikram Feldman PA PA cp Charity Pate mw2 Darline Fragoso, RN RN lr4 Corrections: (The following items were deleted from the chart) 21:46 21:45 Cardiovascular: No deficits noted. lr4 lr4
== END 2021-10-10 20:50 | disposition home or self-care (01) ==
LOC: ER 18:50
DX: R11.2 Nausea with vomiting, unspecified (principal); R19.7 Diarrhea, unspecified; F17.210 Nicotine dependence, cigarettes, uncomplicated
CPT/HCPCS: 99283

== ENCOUNTER 2022-03-23 08:09 | Emergency (ER) | payer BC, SELFPAY ==
--- OUTSIDE RECORDS SUMMARY | 2022-03-23 08:13 | XMS REPORT | Continuity of Care Document ---
:1985 Author Organization [facility] t Address [address] [place] [address] Care Team Providers Name Role Phone PCP, PATIENT DOES NOT HAVE A Primary Care Physician Unavaila Pepe Campa Attending Clinician Unavailable Pepe Bullock Attending Clinician MUKESH KAUFFMAN Attending Clinician Unavailable Doctor Unassigned, [place] Attending Clinician Unavailable Shaina Mota Attending Clinician Unknown, Attending Attending Clinician Unavailable SHAINA FUCHS Attending Clinician Unavailable Payers Payer Name Policy Type Policy Number Effective Date Expiration Date S giuseppe [facility] [id number] 2019 00:00:00 Problems Condition Condition Condition Status Onset Resolution Last Treating Co mments Source Name Details Category Date Date Treatment Clinician Date No known No known Disease Unive rs active active ity of problems problems [facility] Allergies, Adverse Reactions, Alerts Allergy Allergy Status Severity Reaction(s) Onset Inactive Treating Comm ents Source Name Type Date Date Clinician NO KNOWN Drug Active Univers ALLERGIE Class ity of S [facility] Social History Social Habit Start Date Stop Date Quantity Comments Source History of Occasional tobacco Univer sity of tobacco use smoker [facility] Exposure to 2022-03-02 2022-03-12 Not sure University SARS-CoV-2 00:00:00 08:36:00 [facility] [place] Tobacco use and 2017-12-10 2017-12-10 Smokeless tobacco Un iversity of exposure 00:00:00 00:00:00 non-user [facility] Sex [birth year] Universit y of 00:00:00 00:00:00 [facility] Smoking Status Start Date Stop Date Source Occasional tobacco smoker 2017-12-10 00:00:00 Un iversity of [facility] Medications Ordered Filled Start Stop Current Ordering Indication Dosage Frequency Signature Comments Components Source Medication Medication Date Date Medication? Clinician (SIG) Name Name NaCl 0.9% 2021- No 1000mL at 999 Uni vers (NS) bolus 03-12- mL/hr, ity of infusion 14:45: 16:25 1,000 mL, Adama as 1,000 mL 00 :00 IV Medical Infusion, Branch ONCE, 1 dose, On Fri03/12/22 at 0945, STAT ondansetron 2021- No 4mg 4 mg, Slow Univers (ZOFRAN 03-12 IV Push, ity of (PF)) 14:45: 13:48 ONCE, 1 [place] injection 4 00 :00 dose, On Medi sahra mg Branch 03/12/22 at 0945, ZAC ondansetron Yes [id number] 4mg Take 1 Univers 4 mg - tablet by ity of disintegrat 00:00: mouth [place] ing tablet 00 every 8 Medica l (eight) Branch hours as needed for Nausea and Vomiting (N/V). ondansetron 2021- No 4mg 4 mg, Slow Univers (ZOFRAN 09-25-08 IV Push, ity of (PF)) 21:45: 21:00 ONCE, 1 [place] injection 4 00 :00 dose, On Medi sahra mg Fri09/25/21 Branch at 1545, ZAC NaCl 0.9% 2021- No 1000mL at 999 Uni vers (NS) bolus 2-08 02-08 mL/hr, ity of infusion 21:45: 22:04 1,000 mL, Adama as 1,000 mL 00 :00 IV Medical Infusion, Branch ONCE, 1 dose, On Fri09/25/21 at 1545, STAT amoxicillin 2020-08- No [id number] 1{tbl} Take 1 Univers -clavulanat 2-15 09-09 tablet by it y of e 00:00: 05:59 mouth 2 [place] (AUGMENTIN) 00 :00 (two) Medical 875-125 mg times Branch per tablet daily for 10 days. traMADoL 50 2020-08- No [id number] 50mg Take 1 Uni vers mg tablet 08-19 tablet by ity of 00:00: 05:59 mouth [place] 00 :00 every 8 Medical (eight) Branch hours as needed for Pain (scale 4-6) for up to 3 days. Indication s: acute pain loratadine- 2018-08 Yes [id number] 1{tbl} Take 1 Univers pseudoephed 0-18 tablet by ity of rine 00:00: mouth [place] (CLARITIN-D 00 daily. Medica l 24 HOUR) Branch 10-240 mg per 24 hr tablet azithromyci 2018-08 Yes [id number] 250mg Take 1 Univers n 0-18 tablet by ity of (ZITHROMAX 00:00: mouth [place] Z-MARISELA) 250 00 SEE-INSTRU Med ical mg tablet CTIONS. Branch Take 500 mg day 1, then 250 mg days 2 to 5. benzonatate 2018-08 Yes [id number] 100mg Take 1 Univers 100 mg 0-18 capsule by ity of capsule 00:00: mouth 3 00 (three) Medical times Branch daily as needed for Cough. loratadine- 2018-08 Yes [id number] 1{tbl} Take 1 Univers pseudoephed 0-18 tablet by ity of rine 00:00: mouth [place] (CLARITIN-D 00 daily. Medica l 24 HOUR) Branch 10-240 mg per 24 hr tablet azithromyci 2018-08 Yes [id number] 250mg Take 1 Univers n 0-18 tablet by ity of (ZITHROMAX 00:00: mouth [place] Z-MARISELA) 250 00 SEE-INSTRU Med ical mg tablet CTIONS. Branch Take 500 mg day 1, then 250 mg days 2 to 5. benzonatate 2018-08 Yes [id number] 100mg Take 1 Univers 100 mg 0-18 capsule by ity of capsule 00:00: mouth 3 [place] 00 (three) Medical times Branch daily as needed for Cough. loratadine- 2018-08 Yes [id number] 1{tbl} Take 1 Univers pseudoephed 0-18 tablet by ity of rine 00:00: mouth [place] (CLARITIN-D 00 daily. Medica l 24 HOUR) Branch 10-240 mg per 24 hr tablet azithromyci 2018-08 Yes [id number] 250mg Take 1 Univers n 0-18 tablet by ity of (ZITHROMAX 00:00: mouth [place] Z-MARISELA) 250 00 SEE-INSTRU Med ical mg tablet CTIONS. Branch Take 500 mg day 1, then 250 mg days 2 to 5. benzonatate 2018-08 Yes [id number] 100mg Take 1 Univers 100 mg 0-18 capsule by ity of capsule 00:00: mouth 3 [place] 00 (three) Medical times Branch daily as needed for Cough. loratadine- 2018-08 Yes [id number] 1{tbl} Take 1 Univers pseudoephed 0-18 tablet by ity of rine 00:00: mouth [place] (CLARITIN-D 00 daily. Medica l 24 HOUR) Branch 10-240 mg per 24 hr tablet azithromyci 2018-08 Yes [id number] 250mg Take 1 Univers n 0-18 tablet by ity of (ZITHROMAX 00:00: mouth [place] Z-MARISELA) 250 00 SEE-INSTRU Med ical mg tablet CTIONS. Branch Take 500 mg day 1, then 250 mg days 2 to 5. benzonatate 2018-08 Yes [id number] 100mg Take 1 Univers 100 mg 0-18 capsule by ity of capsule 00:00: mouth 3 [place] 00 (three) Medical times Branch daily as needed for Cough. ondansetron Yes [id number] 4mg Take 1 Univers 4 mg 7-09 tablet by ity of disintegrat 00:00: mouth [place] ing tablet 00 every 8 Medica l (eight) Branch hours as needed for Nausea and Vomiting (N/V). ondansetron Yes [id number] 4mg Take 1 Univers 4 mg 7-09 tablet by ity of disintegrat 00:00: mouth [place] ing tablet 00 every 8 Medica l (eight) Branch hours as needed for Nausea and Vomiting (N/V). ondansetron Yes [id number] 4mg Take 1 Univers 4 mg 7-09 tablet by ity of disintegrat 00:00: mouth [place] ing tablet 00 every 8 Medica l (eight) Branch hours as needed for Nausea and Vomiting (N/V). ondansetron 2019-0 Yes [id number] 4mg Take 1 Univers 4 mg 7-09 [...] Time Observation Value Comments Source Systolic blood 2022-03-12 16:25:00 138 mm[Hg] Univer sity of pressure [place] [facility] Diastolic blood 2022-03-12 16:25:00 65 mm[Hg] Unive rsity of pressure [place] [facility] Heart rate 2022-03-12 16:25:00 71 /min Universi ty [facility] [place] [facility] Respiratory rate 2022-03-12 16:25:00 18 /min Univ ersity of [place] [facility] Oxygen saturation in 2022-03-12 16:25:00 98 /min University of Arterial blood by [place] Medi sahra Pulse oximetry Branch Body temperature 2022-03-12 13:23:00 36.56 [place] Univ ersity of [place] [facility] Body height 2022-03-12 13:23:00 182.9 cm [facility] ty [facility] [place] [facility] Body weight 2022-03-12 13:23:00 95.255 kg [facility] [place] [facility] BMI 2022-03-12 13:23:00 28.48 kg/m2 [facility]i ty [facility] [place] [facility] Systolic blood 2021-09-25 20:37:00 129 mm[Hg] Univer sity of pressure [place] [facility] Diastolic blood 2021-09-25 20:37:00 79 mm[Hg] Unive rsity of pressure [place] [facility] Heart rate 2021-09-25 20:37:00 74 /min [facility]i ty [facility] [place] [facility] Body temperature 2021-09-25 20:37:00 37.06 [place] Univ ersity of [place] [facility] Respiratory rate 2021-09-25 20:37:00 20 /min Univ ersity of [place] [facility] Body height 2021-09-25 20:37:00 182.9 cm [facility] [place] [facility] Body weight 2021-09-25 20:37:00 99.791 kg [facility] [place] [facility] BMI 2021-09-25 20:37:00 29.84 kg/m2 [facility]i ty [facility] [place] [facility] Oxygen saturation in 2021-09-25 20:37:00 98 /min University of Arterial blood by [facility] sahra Pulse oximetry Branch Systolic blood 2021-08-15 16:14:00 105 mm[Hg] Univer sity of pressure [place] [facility] Diastolic blood 2021-08-15 16:14:00 72 mm[Hg] Unive rsity of pressure [place] [facility] Heart rate 2021-08-15 16:14:00 75 /min [facility]i ty [facility] [place] [facility] Body temperature 2021-08-15 16:14:00 36.39 [place] [facility] Respiratory rate 2021-08-15 16:14:00 18 /min [facility] Body height 2021-08-15 16:14:00 182.9 cm [facility] Body weight 2021-08-15 16:14:00 94.62 kg [facility] BMI 2021-08-15 16:14:00 28.29 kg/m2 [facility] Oxygen saturation in 2021-08-15 16:14:00 99 /min [facility] blood by [facility] Pulse oximetry [place] Procedures Procedure Date / Time Performed Performing Clinician [facility] e CREATINE KINASE 2022-03-12 13:46:00 Pepe Hastings [facility] LIPASE 2022-03-12 13:46:00 Pepe Hastings [facility] MAGNESIUM 2022-03-12 13:46:00 Pepe Hastings [facility] TROPONIN I 2022-03-12 13:46:00 Pepe Hastings [facility] COMP. METABOLIC PANEL 2022-03-12 13:46:00 Pepe Hastings [facility] ([id number]) [facility] CBC WITH DIFF 2022-03-12 13:46:00 Pepe Hastings [facility] URINALYSIS 2022-03-12 13:46:00 Pepe Hastings [facility] CONSENT/REFUSAL FOR 2022-03-12 13:23:24 Doctor Unassigned, No [facility] DIAGNOSIS AND Name [facility] TREATMENT LIPASE 2021-09-25 20:59:00 Pepe Hastings [facility] MAGNESIUM 2021-09-25 20:59:00 Pepe Hastings [facility] COMP. METABOLIC PANEL 2021-09-25 20:59:00 Pepe Hastings [facility] ([id number]) [facility] CBC WITH DIFF 2021-09-25 20:59:00 Pepe Hastings [facility] NOTICE OF PRIVACY 2021-09-25 20:32:35 Doctor Unassigned, No [facility] Name Medical Branch CONSENT/REFUSAL FOR 2021-09-25 20:32:19 Doctor Unassigned, No [facility] DIAGNOSIS AND Name Medical Branch TREATMENT ASSIGNMENT OF BENEFITS 2021-09-25 20:10:53 Doctor Unassigned, No [facility] Medical Branch Encounters Start End Encounter Admission Attending Care Care Encounter Source Date/Time Date/Time Type Type Clinicians Facility Department ID 2022-03-12 2022-03-12 Emergency X Pepe HASTINGS [facility] ERT [id number] Univers 08:25:00 11:27:00 ity of [facility] 2022-03-12 2022-03-12 Emergency Pepe Hastings [facility] [id number] Univers 08:25:00 11:27:00 Kelsey BAH [id number] i ty of [place] 4.2.7.2.686 [facility] [id number] [address] 2021-09-25 2021-09-25 Emergency X Pepe HASTINGS [facility] ERT [id number] Univers 14:40:00 16:08:00 ity of [facility] 2021-09-25 2021-09-25 Emergency Pepe Hastings [facility] [id number] Univers 14:40:00 16:08:00 Kelsey BAH [id number] i ty of [place] 4.2.7.2.686 [facility] [id number] [address] 2021-09-25 2021-09-25 Outpatient R [facility] [id number] Univers 14:20:00 14:20:00 [id number] ity of [facility] 2021-09-25 2021-09-25 Outpatient R DALY [facility] [id number] Univers 14:20:00 14:20:00 MUKESH bacony o f [facility] 2021-09-25 2021-09-25 Orders Doctor BAIG [id number] Univers 00:00:00 00:00:00 Only Unassigned, SONG [id number] ity of [place] [facility] 4.2.7.2.686 Adama as [id number] [place] [address] Branch 2021-08-15 2021-08-15 Urgent Shaina Fuchs [facility] 1.2.840. 114 [id number] Univers 10:40:00 10:40:00 Care Unknown, Attending HEALTH [id number] ity of [place] 4.2.7.2.686 Adama as ANA CRISTINA?BLEA [phone] Pr dical [address] MEDICAL OFFICE BUILDING 2021-08-15 2021-08-15 Outpatient R JEF [facility] [id number] Univers 10:40:00 10:27:12 [facility] [place] [facility] Results Test Description Test Time Test Comments Results Result Comments Source CBC WITH DIFF 2022-03-12 14:48:53 Test Item Value Reference Range Interpretation Comme nts WBC (test code = 6690-2) See_Comment [A utomated message] The system which [employer] nerated this result transmit briseida reference range: 4.20 - 1 0.70 10*3/?L. The reference r mike was not used to interpr et this result as normal/abnor mal. RBC (test code = 789-8) See_Comment [Au tomated message] The system which [employer] nerated this result transmit briseida reference range: 4.26 - 5 .52 10*6/?L. The reference r mike was not used to interpr et this result as normal/abnor mal. HGB (test code = 718-7) 14.0 g/dL 12.2-16.4 HCT (test code = 4544-3) 41.8 % 38.4-49.3 MCV (test code = 787-2) 89.3 fL 81.7-95.6 MCH (test code = 785-6) 29.9 pg 26.1-32.7 MCHC (test code = 786-4) 33.5 g/dL 31.2-35 RDW-SD (test code = 05683-9) 43.2 fL 38.5-51.6 RDW-CV (test code = 788-0) 13.2 % 12.1-15.4 PLT (test code = 777-3) See_Comment [Au tomated message] The system which ge nerated this result transmit briseida reference range: 150 - 32 8 10*3/?L. The reference range was not used to interpret th is result as normal/abnormal . MPV (test code = 41286-3) 8.3 fL 9.8-13 L NRBC/100 WBC (test code = See_Comment [ Automated message] The 1529121589) system which ge nerated this result transmit briseida reference range: 0.0 - 10 .0 /100 WBCs. The reference r mike was not used to interpr et this result as normal/abnor mal. NRBC x10^3 (test code = See_Comment [Au tomated message] The 3076992610) system which ge nerated this result transmit briseida reference range: 10*3/?L. The reference range was not u sed to interpret this result as normal/abnormal . GRAN MAT (NEUT) % (test code 43.6 % = 770-8) IMM GRAN % (test code = 0.20 % 6733472579) LYMPH % (test code = 736-9) 47.0 % MONO % (test code = 5905-5) 7.8 % EOS % (test code = 713-8) 0.8 % BASO % (test code = 706-2) 0.6 % GRAN MAT x10^3(ANC) (test 2.19 10*3/uL 1.99-6.95 code = 0797487694) IMM GRAN x10^3 (test code = 0-0.06 7116265054) LYMPH x10^3 (test code = 2.36 10*3/uL 1.09-3.23 731-0) MONO x10^3 (test code = 0.39 10*3/uL 0.36-1.02 742-7) EOS x10^3 (test code = 0.04 10*3/uL 0.06-0.53 L 711-2) BASO x10^3 (test code = 0.03 10*3/uL 0.01-0.09 704-7) BANDS (test code = Increased A 0546476453) REACT LYMPHS (test code = Rare 1900449379) Lab Interpretation (test Abnormal code = 60330-9) [facility] [id number] 14:22:22 Test Item Value Reference Interpretation Comments Range TROPONIN I (test 0.002 ng/mL See_Comment [Automated code = 1204273711) message] The system which generated this result transmitted reference range : <=0.034. The reference range was not used to interpret this result as normal/abnormal . RYANN (test code = Reference (Normal) RYANN) Range (defined by the 99th percentile reference limit): <= 0.034 ng/mL Note: Cardiac troponin begins to rise 3-4 hours after the onset of ischemia. Repeat in 4-6 hours if the sample was drawn within 3-4 hours of the onset of the symptom and found normal. Diagnosis of myocardial injury is made with acute changes in cTn concentrations with at least one serial sample above the 99th percentile upper reference limit (URL), taken together with the patient's clinical presentation. Biotin has been reported to cause a negative bias, interpret results relative to patient's use of biotin. Lab Interpretation Normal (test code = 11224-4) [facility]. METABOLIC PANEL ([id number])2022-03-12 14:11:39 Test Item Value Reference Range Interpretation Comments NA (test code = 140 mmol/L 135-145 1344868751) K (test code = 3.9 mmol/L 3.5-5 6536634602) CL (test code = 106 mmol/L 98-108 3777157694) CO2 TOTAL (test code = 25 mmol/L 23-31 0974570074) AGAP (test code = 2-16 1356863327) BUN (test code = 13 mg/dL 7-23 2335233063) GLUCOSE (test code = 111 mg/dL 70-110 H 4605024039) CREATININE (test code = 1.02 mg/dL 0.6-1.25 8531696498) TOTAL BILI (test code = 0.2 mg/dL 0.1-1.8 3626849255) CALCIUM (test code = 8.9 mg/dL 8.6-10.6 7680204082) T PROTEIN (test code = 7.3 g/dL 6.3-8.2 0714020192) ALBUMIN (test code = 4.4 g/dL 3.5-5 8193151445) ALK PHOS (test code = 61 U/L 34-122 1333960487) ALTv (test code = 40 U/L 5-50 1742-6) AST(SGOT) (test code = 49 U/L 13-40 H 4703426179) eGFR (test code = mL/min/1.73m2 1226377221) RYANN (test code = RYANN) Association of [...] tests). Lab Interpretation Abnormal (test code = 94134-7) [facility] 14:[facility]39 Test Item Value Reference Range Interpretation Comments MAGNESIUM (test code = 6370901210) 1.8 mg/dL 1.7-2.4 Lab Interpretation (test code = Normal 87640-7) [facility] 14:11:39 Test Item Value Reference Range Interpretation Comments LIPASE (test code = 4701433327) 211 U/L 0-220 Lab Interpretation (test code = Normal 54971-3) [facility] [id number] 14:11:19 Test Item Value Reference Range Interpretation Comments CK (test code = 8089042921) 237 U/L 33-194 H Lab Interpretation (test code = Abnormal 00550-6) [facility] 22:00:12 Test Item Value Reference Range Interpretation Comments MAGNESIUM (test code = 5279380659) 1.8 mg/dL 1.7-2.4 Lab Interpretation (test code = Normal 15082-3) [facility] ([id number])2021-09-25 21:59:57 Test Item Value Reference Range Interpretation Comments NA (test code = 139 mmol/L 135-145 0047604383) K (test code = 4.1 mmol/L 3.5-5.0 9590253245) CL (test code = 106 mmol/L 98-108 4724236812) CO2 TOTAL (test code = 26 mmol/L 23-31 5913232518) AGAP (test code = 2-16 0178363560) BUN (test code = 14 mg/dL 7-23 7420152260) GLUCOSE (test code = 81 mg/dL 70-110 8918633957) CREATININE (test code = 0.87 mg/dL 0.60-1.25 1576828578) TOTAL BILI (test code = 0.4 mg/dL 0.1-1.2 9866392830) CALCIUM (test code = 9.2 mg/dL 8.6-10.6 6218002707) T PROTEIN (test code = 7.8 g/dL 6.3-8.2 2108608338) ALBUMIN (test code = 5.0 g/dL 3.5-5.0 4923227325) ALK PHOS (test code = 92 U/L 34-122 8982261145) ALTv (test code = 92 U/L 5-50 H 1742-6) AST(SGOT) (test code = 63 U/L 13-40 H 2640512702) eGFR (test code = mL/min/1.73m2 8550915274) RYANN (test code = RYANN) Association of [...] tests). Lab Interpretation Abnormal (test code = 94463-5) [facility] 21[facility]59:52 Test Item Value Reference Range Interpretation Comments LIPASE (test code = 3327840117) 88 U/L 0-220 Lab Interpretation (test code = Normal 33343-6) [facility] [id number] 21:49:11 Test Item Value Reference Range Interpretation Comments WBC (test code = See_Comment [Automated 8262-2) message] The sy stem which generated this result transmitted reference range : 4.20 - 10.70 10*3/?L. The reference range was not used to interpret this result as normal/abnormal . RBC (test code = See_Comment [Automated 983-4) message] The sy stem which generated this [...] RDW-SD (test code = 43.8 fL 38.5-51.6 23562-8) RDW-CV (test code = 13.3 % 12.1-15.4 788-0) PLT (test code = See_Comment [Automated 777-3) message] The sy stem which generated this result transmitted reference range : 150 - 328 10*3/ ?L. The reference r mike was not used to interpret this result as normal/abnormal . MPV (test code = 8.4 fL 9.8-13.0 L 76508-4) NRBC/100 WBC (test See_Comment [Automat ed code = 7438631223) message] The system which generated this result transmitted reference range : 0.0 - 10.0 /100 WBCs. The refer ence range was not u sed to interpret th is result as normal/abnormal . NRBC x10^3 (test code <0.01 See_Comment [Auto mated = 5301739467) message] The s ystem which generated this result transmitted reference range : 10*3/?L. The reference range was not used to interpret this result as normal/abnormal . GRAN MAT (NEUT) % 53.5 % (test code = 770-8) IMM GRAN % (test code 0.30 % = 1342779791) LYMPH % (test code = 37.0 % 736-9) MONO % (test code = 6.6 % 5905-5) EOS % (test code = 2.5 % 713-8) BASO % (test code = 0.1 % 706-2) GRAN MAT x10^3(ANC) 3.57 10*3/uL 1.99-6.95 (test code = 3243471714) IMM GRAN x10^3 (test <0.03 0.00-0.06 code = 7755103287) LYMPH x10^3 (test code 2.47 10*3/uL 1.09-3.23 = 731-0) MONO x10^3 (test code 0.44 10*3/uL 0.36-1.02 = 742-7) EOS x10^3 (test code = 0.17 10*3/uL 0.06-0.53 711-2) BASO x10^3 (test code <0.03 0.01-0.09 = 704-7) Lab Interpretation Abnormal (test code = 97342-9) [facility]"
[2022-03-23 09:07] LABS: Absolute Lymphocytes (CBC) 2.2 K/uL (0.7-4.9); Hematocrit 39.8 % (39.6-49.0); Lymphocytes % 39.6 % (15.3-44.8); MCV 88.1 fL (80-100); MPV 6.1 fL (7.6-11.3); RBC Red Blood Cell Count 4.51 M/uL (4.33-5.43)
[2022-03-23] MEDS ORDERED: NA CHLORIDE 0.9% 1,000 ML ONE (09:10)
[2022-03-23] MEDS ORDERED: ONDANSETRON 4 MG/2 ML VIAL ONE (09:10)
--- NOTE | 2022-03-23 10:46 | EDPHYS ---
Physician Documentation [facility] Name: Harpreet Andrews Age: 36 yrs Sex: Male : 1985 Arrival Date: 03/23/2022 Time: 08:18 Bed DIS2 Private MD: ED Physician Vikram Coyle HPI: 03/23 10:43 This 36 yrs old Black Male presents to ER via Ambulatory with complaints of Nausea jl9 since yesteray. Patient reports abd discomfort yesterday but denies any today. . 10:43 The patient presents with feeling faint. Onset: The symptoms/episode began/occurred jl9 yesterday. Associated signs and symptoms: Pertinent negatives: agitation, blurred vision, chest pain, combativeness, focal weakness. Historical: - Allergies: 08:32 No Known Allergies; iw - Home Meds: 08:32 None [Active]; iw - PMHx: 08:32 None; iw - PSHx: 08:32 None; iw - Social history:: Smoking status: Patient reports the use of cigarette tobacco products, denies chronic smoking, but will smoke occasionally. ROS: 10:44 Constitutional: Negative for fever, chills, and weight loss, Eyes: Negative for injury, jl9 pain, redness, and discharge, ENT: Negative for injury, pain, and discharge, Neck: Negative for injury, pain, and swelling, Cardiovascular: Negative for chest pain, palpitations, and edema, Respiratory: Negative for shortness of breath, cough, wheezing, and pleuritic chest pain. 10:44 Back: Negative for injury and pain, : Negative for injury, bleeding, discharge, and swelling, MS/Extremity: Negative for injury and deformity, Skin: Negative for injury, rash, and discoloration, Neuro: Negative for headache, weakness, numbness, tingling, and seizure, Psych: Negative for depression, anxiety, suicide ideation, homicidal ideation, and hallucinations, Allergy/Immunology: Negative for hives, rash, and allergies, Endocrine: Negative for neck swelling, polydipsia, polyuria, polyphagia, and marked weight changes, Hematologic/Lymphatic: Negative for swollen nodes, abnormal bleeding, and unusual bruising. 10:44 Abdomen/GI: Positive for nausea, Negative for abdominal pain, vomiting, diarrhea. Exam: 10:45 Constitutional: This is a well developed, well nourished patient who is awake, alert, jl9 and in no acute distress. Head/Face: Normocephalic, atraumatic. Eyes: Pupils equal round and reactive to light, extra-ocular motions intact. Lids and lashes normal. Conjunctiva and sclera are non-icteric and not injected. Cornea within normal limits. Periorbital areas with no swelling, redness, or edema. ENT: Mucous membranes moist. Neck: Trachea midline, no thyromegaly or masses palpated, and no cervical lymphadenopathy. Supple, full range of motion without nuchal rigidity, or vertebral point tenderness. No Meningismus. Chest/axilla: Normal chest wall appearance and motion. Nontender with no deformity. No lesions are appreciated. Cardiovascular: Regular rate and rhythm with a normal S1 and S2. No gallops, murmurs, or rubs. Normal PMI, no JVD. No pulse deficits. Respiratory: Lungs have equal breath sounds bilaterally, clear to auscultation and percussion. No rales, rhonchi or wheezes noted. No increased work of breathing, no retractions or nasal flaring. Abdomen/GI: Soft, non-tender, with normal bowel sounds. No distension or tympany. No guarding or rebound. No evidence of tenderness throughout. Back: No spinal tenderness. No costovertebral tenderness. Full range of motion. Skin: Warm, dry with normal turgor. Normal color with no rashes, no lesions, and no evidence of cellulitis. MS/ Extremity: Pulses equal, no cyanosis. Neurovascular intact. Full, normal range of motion. Neuro: Awake and alert, GCS 15, oriented to person, place, time, and situation. Cranial nerves II-XII grossly intact. Motor strength 5/5 in all extremities. Sensory grossly intact. Cerebellar exam normal. Normal gait. Psych: Awake, alert, with orientation to person, place and time. Behavior, mood, and affect are within normal limits. Vital Signs: 08:31 BP 120 / 81; Pulse 75; Resp 16; Temp 97.1; Pulse Ox 100% on R/A; Weight 95.25 kg; iw Height 6 ft. 0 in. (182.88 cm); 08:31 Body Mass Index 28.48 (95.25 kg, 182.88 cm) iw MDM: 08:37 Patient medically screened. jl9 10:45 Data reviewed: vital signs, nurses notes. jl9 10:45 Test interpretation: by ED physician or midlevel provider: ECG, NSR 74 bpm. Counseling: jl9 I had a detailed discussion with the patient and/or guardian regarding: the historical points, exam findings, and any diagnostic results supporting the discharge/admit diagnosis, the need for outpatient follow up, to return to the emergency department if symptoms worsen or persist or if there are any questions or concerns that arise at home. 10:47 Medication response: Patient improved after IVF and requesting to go home and not wait jl9 on other labs. Patient reports that he came here for a work note. . 03/23 08:38 Order name: CBC with Diff; Complete Time: 10:10 jl9 03/23 08:38 Order name: BMP jl9 03/23 08:38 Order name: Lipase jl9 03/23 08:40 Order name: CBC with Automated Diff EDMS 03/23 10:40 Order name: SARS-COV-2 RT PCR (Document "Date of Onset" if Symptomatic) iw 03/23 08:38 Order name: IV Saline Lock; Complete Time: 08:52 jl9 03/23 09:11 Order name: Labs - recollect needed: recollect blood hemolyzed; Complete Time: 09:24 eb Administered Medications: 09:06 Drug: NS 0.9% 1000 ml Route: IV; Rate: 1000 ml; Site: right antecubital; iw 12:17 Follow up: IV Status: Completed infusion iw 09:06 Drug: Zofran (Ondansetron) 4 mg Route: IVP; Site: right antecubital; iw 10:00 Follow up: Response: No adverse reaction iw Disposition Summary: 03/23/22 10:46 Discharge Ordered Location: Home jl9 Condition: Stable jl9 Diagnosis - Nausea jl9 Followup: jl9 - With: Private Physician - When: 1 - 2 days - Reason: Recheck today's complaints, Continuance of care, Re-evaluation by your physician Discharge Instructions: - Discharge Summary Sheet jl9 Forms: - Medication Reconciliation Form jl9 - Thank You Letter jl9 - Antibiotic Education jl9 - Work release form iw - Prescription Opioid Use jl9 Prescriptions: - ondansetron 8 mg Oral tablet,disintegrating - take 1 tablet by ORAL route every 8 hours As needed; 20 tablet; Refills: 0, jl9 Product Selection Permitted Signatures: Dispatcher [employer] Juanita Asif, RN RN Lakeshia Maloney John jl9
--- NOTE | 2022-03-23 10:46 | ER ---
Nurse's Notes [facility] Name: Harpreet Andrews Age: 36 yrs Sex: Male : 1985 Arrival Date: 03/23/2022 Time: 08:18 Bed DIS2 Private MD: Diagnosis: Nausea Presentation: 03/23 08:31 Chief complaint: Patient states: been feeling nauseated since yesterday morning , I'm iw dry heaving a lot , denies abd pain or diarrhea, no vomiting. Coronavirus screen: Client presents with at least one sign or symptom that may indicate coronavirus-19. Ebola Screen: Patient negative for fever greater than or equal to 101.5 degrees Fahrenheit, and additional compatible Ebola Virus Disease symptoms Patient denies exposure to infectious person. Patient denies travel to an Ebola-affected area in the 21 days before illness onset. No symptoms or risks identified at this time. Initial Sepsis Screen: Does the patient meet any 2 criteria? No. Patient's initial sepsis screen is negative. Does the patient have a suspected source of infection? No. Patient's initial sepsis screen is negative. Risk Assessment: Do you want to hurt yourself or someone else? Patient reports no desire to harm self or others. Onset of symptoms was March 22, 2022. 08:31 Method Of Arrival: Ambulatory iw 08:31 Acuity: RAMA 3 iw Historical: - Allergies: 08:32 No Known Allergies; iw - Home Meds: 08:32 None [Active]; iw - PMHx: 08:32 None; iw - PSHx: 08:32 None; iw - Social history:: Smoking status: Patient reports the use of cigarette tobacco products, denies chronic smoking, but will smoke occasionally. Assessment: 09:39 Reassessment: Patient appears in no apparent distress at this time. Patient and/or iw family updated on plan of care and expected duration. Pain level reassessed. Patient is alert, oriented x 3, equal unlabored respirations, skin warm/dry/pink. Vital Signs: 08:31 BP 120 / 81; Pulse 75; Resp 16; Temp 97.1; Pulse Ox 100% on R/A; Weight 95.25 kg; iw Height 6 ft. 0 in. (182.88 cm); 08:31 Body Mass Index 28.48 (95.25 kg, 182.88 cm) iw ED Course: 08:18 Patient arrived in ED. am2 08:29 Alli Martell is PHCP. jl9 08:29 Vikram Coyle MD is Attending Physician. jl9 08:32 Triage completed. iw 08:32 Arm band placed on. iw 08:52 Inserted saline lock: 20 gauge in right antecubital area, using aseptic technique. kc6 Blood collected. 08:52 BMP Sent. kc6 08:52 CBC with Diff Sent. kc6 08:52 CBC with Automated Diff Sent. kc6 08:54 Juanita Walker, RN is Primary Nurse. iw Administered Medications: 09:06 Drug: NS 0.9% 1000 ml Route: IV; Rate: 1000 ml; Site: right antecubital; iw 12:17 Follow up: IV Status: Completed infusion iw 09:06 Drug: Zofran (Ondansetron) 4 mg Route: IVP; Site: right antecubital; iw 10:00 Follow up: Response: No adverse reaction iw Outcome: 10:46 Discharge ordered by . jl9 10:57 Patient left the ED. iw Signatures: Juanita Walker, RN RN iw Stacie Dean amAlli Tena jl9 Juanis Lopez kc6
[2022-03-23 10:58] LABS: Potassium 4.7 mmol/L (3.5-5.1)
[2022-03-23 11:12] LABS: White Blood Cell Scan OK (OK)
[2022-03-23 11:13] LABS: Blood Morphology Comment NOT SEEN (NOT SEEN); Platelet Estimate ADEQ
[2022-03-23 11:27] VITALS: BP 120/81; TEMP 97.1; O2SAT 100
== END 2022-03-23 10:57 | disposition home or self-care (01) ==
LOC: ER 08:09
DX: R11.0 Nausea (principal); F17.210 Nicotine dependence, cigarettes, uncomplicated
CPT/HCPCS: 36415; 80048; 83690; 85025; 96361; 96374; 99283; J2405; J7030; U0003